=== PATIENT | male | born 1980 | race African-American/Black ===

== ENCOUNTER 2020-10-25 09:03 | Emergency (ER) | payer OTHER ==
[2020-10-25 09:09] VITALS: TEMP 97.8
[2020-10-25] MEDS ORDERED: SODIUM CHLORIDE 0.9% 1,000 ML IV STA (09:44)
--- NOTE | 2020-10-25 09:46 | ED ---
General Adult HPI - General Chief complaint: Arrhythmia/Palpitations Stated complaint: elevated HR, sweating Time Seen by Provider: 10/25/20 09:14 Source: patient, RN notes reviewed Mode of arrival: ambulatory Limitations: no limitations - History of Present Illness Initial comments: 40-year-old male presents to the emergency room for chief point of heart palpitations, sweating, and losing weight. Patient states that 6 months ago he started to get heart palpitations and was sweating more. States it comes and goes. He never has chest pain or shortness of breath with this. About 2 months ago he started to lose weight and get cramping in his hands. The past month or so he started to become nauseous after eating but denies any abdominal pain. Patient denies any stress or anxiety that he is aware of. 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 Patient did stop his thyroid medicine a year ago because he moved. He is unsure what type of thyroid medicine this was. Patient has no other complaints at this time including shortness of breath, chest pain, abdominal pain, nausea or vomiting, headache, or visual changes. - Related Data Home Medications Medication Instructions Recorded Confirmed No Known Home Medications 10/25/20 10/25/20 Allergies Allergy/AdvReac Type Severity Reaction Status Date / Time No Known Allergies Allergy Verified 10/25/20 10:47 Review of Systems ROS Statement: Those systems with pertinent positive or pertinent negative responses have been documented in the HPI. ROS Other: All systems not noted in ROS Statement are negative. Past Medical History Past Medical History: Cancer, Thyroid Disorder History of Any Multi-Drug Resistant Organisms: None Reported Past Surgical History: Adenoidectomy, Tonsillectomy Additional Past Surgical History / Comment(s): left leg surgery to remove cancer. Past Psychological History: No Psychological Hx Reported Smoking Status: Current every day smoker Past Alcohol Use History: Occasional Past Drug Use History: Marijuana General Exam Limitations: no limitations General appearance: alert, in no apparent distress Head exam: Present: atraumatic, normocephalic Eye exam: Present: normal appearance, PERRL, EOMI. Absent: scleral icterus, conjunctival injection ENT exam: Present: normal exam, mucous membranes moist Neck exam: Present: normal inspection, full ROM. Absent: tenderness Respiratory exam: Present: normal lung sounds bilaterally. Absent: respiratory distress, wheezes Cardiovascular Exam: Present: regular rate, normal rhythm, normal heart sounds GI/Abdominal exam: Present: soft, normal bowel sounds. Absent: distended, tenderness Neurological exam: Present: alert Course Vital Signs 10/25/20 10/25/20 10/25/20 09:05 09:40 10:40 Temperature 97.8 F Pulse Rate 101 H 87 Pulse Rate [ 92 Sitting Lathe Mechanic] Respiratory 20 18 Rate Blood Pressure 138/80 136/77 O2 Sat by Pulse 99 99 Oximetry 10/25/20 12:37 Temperature Pulse Rate 85 Pulse Rate [ Sitting Lathe Mechanic] Respiratory 18 Rate Blood Pressure 138/77 O2 Sat by Pulse 99 Oximetry EKG Findings - EKG Comments: EKG Findings:: Normal sinus rhythm, ventricular rate 96, DE interval 134, QTC 421 Medical Decision Making - Medical Decision Making vitals are stable. CBC is unremarkable. CMP unremarkable. Patient however does have hyperthyroidism. Troponin is within normal limits, was repeated twice without increasing. No chest pain. Chest x-ray shows a patchy posterior lower lung opacity that could represent atelectasis. Developing infiltrate is possible if there are infectious respiratory symptoms. Patient does not have cough congestion or fevers. No history of fevers at home. Will monitor for now. Patient currently does not have a PCP. I did offer to admit patient for hyperthyroidism however at this time he refuses and prefers to go home. He will follow-up with his doctor. He will return here for any worsening symptoms. - Lab Data Result diagrams: 10/25/20 10:34 10/25/20 10:09 Lab Results 10/25/20 10/25/20 10/25/20 Range/Units 10:09 10:34 10:34 WBC 5.8 (3.8-10.6) k/uL RBC 4.94 (4.30-5.90) m/uL Hgb 12.9 L (13.0-17.5) gm/dL Hct 41.3 (39.0-53.0) % MCV 83.6 (80.0-100.0) fL MCH 26.0 (25.0-35.0) pg MCHC 31.1 (31.0-37.0) g/dL RDW 12.8 (11.5-15.5) % Plt Count 182 (150-450) k/uL MPV 8.5 Neutrophils % 62 % Lymphocytes % 19 % Monocytes % 11 % Eosinophils % 4 % Basophils % 1 % Neutrophils # 3.6 (1.3-7.7) k/uL Lymphocytes # 1.1 (1.0-4.8) k/uL Monocytes # 0.6 (0-1.0) k/uL Eosinophils # 0.2 (0-0.7) k/uL Basophils # 0.0 (0-0.2) k/uL PT 10.7 (9.0-12.0) sec INR 1.0 (<1.2) APTT 24.0 (22.0-30.0) sec Sodium 138 (137-145) mmol/L Potassium 4.5 (3.5-5.1) mmol/L Chloride 109 H (98-107) mmol/L Carbon Dioxide 25 (22-30) mmol/L Anion Gap 4 mmol/L BUN 17 (9-20) mg/dL Creatinine 0.51 L (0.66-1.25) mg/dL Est GFR (CKD-EPI)AfAm >90 (>60 ml/min/1.73 sqM) Est GFR (CKD-EPI)NonAf >90 (>60 ml/min/1.73 sqM) Glucose 108 H (74-99) mg/dL Calcium 9.2 (8.4-10.2) mg/dL Magnesium 1.9 (1.6-2.3) mg/dL Total Bilirubin 0.6 (0.2-1.3) mg/dL AST 32 (17-59) U/L ALT 38 (4-49) U/L Alkaline Phosphatase 139 H (38-126) U/L Troponin I (0.000-0.034) ng/mL Total Protein 6.2 L (6.3-8.2) g/dL Albumin 3.3 L (3.5-5.0) g/dL TSH <0.015 L (0.465-4.680) mIU/L Free T4 5.55 H (0.78-2.19) ng/dL 10/25/20 10/25/20 Range/Units 10:34 12:50 WBC (3.8-10.6) k/uL RBC (4.30-5.90) m/uL Hgb (13.0-17.5) gm/dL Hct (39.0-53.0) % MCV (80.0-100.0) fL MCH (25.0-35.0) pg MCHC (31.0-37.0) g/dL RDW (11.5-15.5) % Plt Count (150-450) k/uL MPV Neutrophils % % Lymphocytes % % Monocytes % % Eosinophils % % Basophils % % Neutrophils # (1.3-7.7) k/uL Lymphocytes # (1.0-4.8) k/uL Monocytes # (0-1.0) k/uL Eosinophils # (0-0.7) k/uL Basophils # (0-0.2) k/uL PT (9.0-12.0) sec INR (<1.2) APTT (22.0-30.0) sec Sodium (137-145) mmol/L Potassium (3.5-5.1) mmol/L Chloride (98-107) mmol/L Carbon Dioxide (22-30) mmol/L Anion Gap mmol/L BUN (9-20) mg/dL Creatinine (0.66-1.25) mg/dL Est GFR (CKD-EPI)AfAm (>60 ml/min/1.73 sqM) Est GFR (CKD-EPI)NonAf (>60 ml/min/1.73 sqM) Glucose (74-99) mg/dL Calcium (8.4-10.2) mg/dL Magnesium (1.6-2.3) mg/dL Total Bilirubin (0.2-1.3) mg/dL AST (17-59) U/L ALT (4-49) U/L Alkaline Phosphatase (38-126) U/L Troponin I 0.015 0.015 (0.000-0.034) ng/mL Total Protein (6.3-8.2) g/dL Albumin (3.5-5.0) g/dL TSH (0.465-4.680) mIU/L Free T4 (0.78-2.19) ng/dL Disposition Clinical Impression: Hyperthyroidism Disposition: HOME SELF-CARE Condition: Good Instructions (If sedation given, give patient instructions): Hyperthyroidism (ED) Additional Instructions: Please follow up with primary care provider soon as possible. Go over all ER reports and results. If you have any worsening symptoms or fevers return to the emergency room. Is patient prescribed a controlled substance at d/c from ED?: No Referrals: Valentin Hernandez MD [REFERRING] - 1-2 days Yamilka Fraga DO [REFERRING] - 1-[address] MD [STAFF PHYSICIAN] - 1-2 days Time of Disposition: 13:50
--- NOTE | 2020-10-25 10:23 | XR ---
EXAMINATION TYPE: XR chest 2V DATE OF EXAM: 10/25/2020 COMPARISON: None HISTORY: 40-year-old male dysrhythmia TECHNIQUE: PA and lateral views FINDINGS: The heart is normal size. Aorta and pulmonary vasculature within normal limits. There is patchy poste rior lower lung opacity on the lateral view. Mild hyperinflation. No pleural effusion. IMPRESSION: 1. Correlate for possible underlying COPD. 2. Lateral view shows patchy posterior lower lung opacity that could represent atelectasis. Developin g infiltrate/pneumonia is possible if there are infectious respiratory signs/symptoms.
[2020-10-25 10:41] VITALS: RESP 18
[2020-10-25 10:49] LABS: Basophils % (A) 1 %; Eosinophils # (A) 0.2 k/uL (0-0.7); Eosinophils % (A) 4 %; HCT 41.3 % (39.0-53.0); HGB 12.9 gm/dL (13.0-17.5); Lymphocytes # (A) 1.1 k/uL (1.0-4.8); Lymphocytes % (A) 19 %; MCHC 31.1 g/dL (31.0-37.0); MCV 83.6 fL (80.0-100.0); Mean Platelet Volume 8.5; Monocytes # (A) 0.6 k/uL (0-1.0); Monocytes % (A) 11 %; Neutrophils # (A) 3.6 k/uL (1.3-7.7); Neutrophils % (A) 62 %; Platelet Count 182 k/uL (150-450); RBC 4.94 m/uL (4.30-5.90); RDW 12.8 % (11.5-15.5); WBC 5.8 k/uL (3.8-10.6)
[2020-10-25 10:59] LABS: ALT 38 U/L (4-49); AST 32 U/L (17-59); African American GFR (CKD) >90 (>60 ml/min/1.73 sqM); Albumin 3.3 g/dL (3.5-5.0); Alkaline Phosphatase 139 U/L (38-126); Anion Gap 4 mmol/L; Blood Urea Nitrogen 17 mg/dL (9-20); Calcium 9.2 mg/dL (8.4-10.2); Carbon Dioxide 25 mmol/L (22-30); Chloride 109 mmol/L (98-107); Glucose 108 mg/dL (74-99); Magnesium 1.9 mg/dL (1.6-2.3); Non-African American GFR(CKD) >90 (>60 ml/min/1.73 sqM); Potassium 4.5 mmol/L (3.5-5.1); Sodium 138 mmol/L (137-145); Total Bilirubin 0.6 mg/dL (0.2-1.3); Total Protein 6.2 g/dL (6.3-8.2)
[2020-10-25 11:13] LABS: Prothrombin Time 10.7 sec (9.0-12.0)
[2020-10-25 12:12] LABS: T4, Free (Free Thyroxine) 5.55 ng/dL (0.78-2.19)
[2020-10-25] MEDS ORDERED: ONDANSETRON 4 MG/2 ML VIAL IVP STA (12:36)
[2020-10-25 12:38] VITALS: BP 138/77; PULSE 85
== END 2020-10-25 14:11 | disposition home or self-care (01) ==
LOC: EC 09:03
DX: E05.90 Thyrotoxicosis, unspecified without thyrotoxic crisis or storm (principal); R00.2 Palpitations; F17.200 Nicotine dependence, unspecified, uncomplicated
CPT/HCPCS: 36415; 93005; 84439; 80053; 84443; 83735; 84484; 85025; 85610; 85730; 71046; 99285; 96374; 96361; J2405